=== PATIENT | male | born 1985 | race Caucasian/White ===

== ENCOUNTER 2020-10-09 12:43 | Emergency (ER) | payer MEDICAID, OTHER ==
[~2020-10-09] VITALS: Ht 180.3 cm; Wt 51.3 kg
--- NOTE | 2020-10-09 12:48 | NUR ---
[id number]. IN CUSTODY FOR VANDALIZING BREAKING STORE WINDOWS. VERSED 5MG IM GIVEN PUBLIC HEALTH NURSE. PT AGITATED, SCREAMING, COMBATIVE IN FIELD PER EMS & [employer] OFFICERS. PT ON HANDCUFFS. PLACED ON JOB SETTER, ST. RR EVEN & UNLABORED. AWAITING EVAL BY ERMD. WILL CONT TO MONITOR. [employer] OFFICERS AT BS.
[2020-10-09 13:13] LABS: BASOPHILS # (AUTO) 0.1 K/uL (0.0-0.2); BASOPHILS % (AUTO) 0.6 % (0.0-2.0); EOSINOPHILS % (AUTO) 1.2 % (0.0-6.0); HEMATOCRIT 45 % (39-51); HEMOGLOBIN 14.7 g/dL (13.5-17.5); LYMPHOCYTES # (AUTO) 1.1 K/uL (0.8-4.8); LYMPHOCYTES % (AUTO) 12.4 % (20.0-44.0); MEAN CORPUSCULAR HGB CONC 33 g/dl (31.0-36.0); MEAN CORPUSCULAR VOLUME 92 fL (80-96); MONOCYTES # (AUTO) 0.6 K/uL (0.1-1.30); MONOCYTES % (AUTO) 6.5 % (2.0-12.0); NEUTROPHILS # (AUTO) 6.9 K/uL (1.8-8.9); NEUTROPHILS % (AUTO) 79.3 % (43.0-81.0); PLATELET COUNT (AUTO) 352 K/uL (150-450); RED BLOOD CELL COUNT(AUTO) 4.87 MIL/uL (4.5-6.0); WHITE BLOOD COUNT (AUTO) 8.7 K/uL (4.3-11.0)
[2020-10-09 13:25] LABS: CALCIUM, SERUM 9.4 mg/dL (8.5-10.1); CREATININE 1.5 mg/dL (0.6-1.3); POTASSIUM 3.7 mmol/L (3.5-5.1)
[2020-10-09 13:30] LABS: ALBUMIN 4.1 g/dL (3.4-5.0); TOTAL PROTEIN, SERUM 7.8 g/dL (6.4-8.2)
[2020-10-09 13:42] LABS: BILIRUBIN,DIRECT 0.3 mg/dL (0.0-0.2)
[2020-10-09 13:45] LABS: BILIRUBIN,URINE SMALL (NEGATIVE); COLOR,URINE DARK YELLOW (YELLOW); LEUKOCYTE ESTERASE ,URINE NEGATIVE (NEGATIVE); NITRITE, URINE NEGATIVE (NEGATIVE); PROTEIN,URINE 100 mg/dl (NEGATIVE); UGLUCOSE NEGATIVE (NEGATIVE)
[2020-10-09 13:56] LABS: BACTERIA,URINE Few /HPF (None Seen); SQUAMOUS EPITHELIAL CELL,UR Few /HPF (None Seen)
[2020-10-09 13:58] LABS: SPERM,URINE Few /HPF (None Seen)
[2020-10-09 13:59] LABS: URINE AMORPHOUS URATE Moderate /HPF (None Seen)
--- NOTE | 2020-10-09 14:25 | NUR ---
PT AAOX4, RR EVEN & UNLABORED. CALM & COOPERATIVE. OBTAINED CONSENT FORM FOR HIV BLOOD WITHDRAWAL, PT ACKNOWLEDGED & SIGNED FORM. GIVEN WATER & YRN WELL. WILL CONT TO MONITOR. [employer] OFFICERS AT BS.
--- NOTE | 2020-10-09 15:37 | NUR ---
Patient discharged to [facility] in stable condition. Written and verbal after care instructions given [employer] OFFICERS & PT . [employer] OFFICERS/PT verbalizes understanding of instruction. IV removed. Catheter intact and site benign. Pressure and 4x4 applied to site. No bleeding noted. PT AMB WITH STEADY GAIT & ESCORTED BY [employer] OFFICERS UPON LEAVING ED.
[2020-10-09 15:39] VITALS: BP 138/72
== END 2020-10-09 15:40 ==
LOC: EDSEX 12:48 → ER 12:48
DX: R45.851 Suicidal ideations (principal)
CPT/HCPCS: 36415; 80048-TC; 80076-TC; 81001; 85025-TC; 86702; 86803; 87340; G0480